=== PATIENT | male | born 1940 | race Caucasian/White ===

== ENCOUNTER 2018-05-27 10:07 | Emergency (ER) | payer OTHER ==
[2018-05-27 11:38] LABS: Urine Amorphous Sediment 1+ /HPF (NONE SEEN); Urine Bacteria <20 /HPF (NONE SEEN); Urine Culture Reflex Order NOT NEEDED; Urine RBC <5 /HPF (NONE SEEN)
[2018-05-27 12:26] LABS: Absolute Lymphocytes (CBC) 2.5 K/uL (0.7-4.9); Absolute Monocytes 0.6 K/uL (0.1-1.3); Absolute Neutrophil 3.9 K/uL (1.8-8.0); Basophils % 1.1 % (0-1.3); Eosinophils % 4.5 % (0-4.4); Hematocrit 38.3 % (39.6-49.0); Lymphocytes % 33.3 % (15.3-44.8); MPV 9.3 fL (7.6-11.3); Monocytes % 8.3 % (3.3-12.3); RBC Red Blood Cell Count 4.38 M/uL (4.33-5.43)
[2018-05-27 12:29] LABS: Potassium 4.5 mmol/L (3.5-5.1)
--- NOTE | 2018-05-27 13:20 | ER ---
Nurse's Notes [facility] Name: Josh Washington Age: 78 yrs Sex: Male : 1940 Arrival Date: 05/27/2018 Time: 10:11 Bed 7 Private MD: Diagnosis: Retention of urine Presentation: 05/27 10:12 Presenting complaint: Patient states: urinary frequency, burning with urination started sv yesterday. Transition of care: patient was not received from another setting of care. Onset of symptoms was May 26, 2018. Care prior to arrival: None. 10:12 Method Of Arrival: Ambulatory sv 10:12 Acuity: BILL 4 sv 11:57 Risk Assessment: Do you want to hurt yourself or someone else? Patient reports no tw2 desire to harm self or others. Initial Sepsis Screen: Does the patient meet any 2 criteria? No. Patient's initial sepsis screen is negative. Does the patient have a suspected source of infection? No. Patient's initial sepsis screen is negative. Triage Assessment: 10:12 General: Appears in no apparent distress. comfortable, Behavior is calm, cooperative, sv appropriate for age. Pain:. Neuro: Level of Consciousness is awake, alert, obeys commands, Oriented to person, place, time, situation, Moves all extremities. Full function Gait is steady. : Reports burning with urination, urinary frequency. Historical: - Allergies: 10:14 No Known Allergies; sv - Immunization history:: Flu vaccine is not up to date. - Social history:: Smoking status: Patient/guardian denies using tobacco. - Ebola Screening: : No symptoms or risks identified at this time. Screenin:53 Abuse screen: Denies threats or abuse. Nutritional screening: No deficits noted. tw2 Tuberculosis screening: No symptoms or risk factors identified. Fall Risk None identified. Assessment: 10:45 General: Appears in no apparent distress. Behavior is calm, cooperative, appropriate tw2 for age. Neuro: Level of Consciousness is awake, alert, obeys commands, Oriented to person, place, time, situation. Cardiovascular: Heart tones S1 S2 Patient's skin is warm and dry. Respiratory: Airway is patent Respiratory effort is even, unlabored, Respiratory pattern is regular, symmetrical, Breath sounds are clear bilaterally. GI: Abdomen is flat, Bowel sounds present X 4 quads. : Reports burning with urination, since last night urinary frequency. EENT: No signs and/or symptoms were reported regarding the EENT system. Derm: No signs and/or symptoms reported regarding the dermatologic system. Musculoskeletal: Range of motion: intact in all extremities. 11:51 Reassessment: pt refused hanna per ALYSA Loaiza at this time. tw2 11:55 Reassessment: Patient appears in no apparent distress at this time. No changes from tw2 previously documented assessment. Patient and/or family updated on plan of care and expected duration. Pain level reassessed. Patient is alert, oriented x 3, equal unlabored respirations, skin warm/dry/pink. 13:18 Reassessment: pt states "I want to go home, i will just call back for the results", tw2 provider aware, pt educated as to against medical advise, pt aware. Vital Signs: 10:14 BP 109 / 72; Pulse 76; Resp 16; Temp 97.7; Pulse Ox 99% ; Weight 65.77 kg; Height 6 ft. sv 0 in. (182.88 cm); Pain 4/10; 11:57 BP 119 / 76; Pulse 84; Resp 17; Pulse Ox 97% on R/A; tw2 13:12 BP 111 / 69; Pulse 71; Resp 17; Pulse Ox 98% on R/A; tw2 10:14 Body Mass Index 19.67 (65.77 kg, 182.88 cm) sv ED Course: 10:11 Patient arrived in ED. mr 10:13 Triage completed. sv 10:15 Arm band placed on Patient placed in waiting room, Patient notified of wait time. sv 10:44 B[facility]C [facility] kb 10:44 Drew Maynard MD is Attending Physician. kb 10:52 Mary Alice Garcia, RN is Primary Nurse. tw2 10:53 Bed in low position. Call light in reach. Pulse ox on. NIBP on. tw2 11:00 Urine collected: clean catch specimen, clear. ag 11:56 Inserted saline lock: 20 gauge in right antecubital area, using aseptic technique. ag Blood collected. 12:59 Stone Protocol In Process Unspecified. EDMS 12:59 CT completed. Patient tolerated procedure well. Patient moved back from CT. bq 13:23 Primary Nurse role handed off by Mary Alice Garcia RN kb Administered Medications: No medications were administered Outcome: 13:19 AMA AMA form signed tw2 13:20 Patient left the ED. tw2 13:24 Patient left the ED. bety Signatures: Dispatcher [employer] EDMS Bárbara Macias, TURF GROWER-C TURF GROWER-CkMichelle Medina RN Cecy Figueroa mr Ashley, Rosa Lewis Tara, RN RN tw2
--- NOTE | 2018-05-27 13:20 | EDPHYS ---
Physician Documentation [facility] Name: Josh Washington Age: 78 yrs Sex: Male : 1940 Arrival Date: 05/27/2018 Time: 10:11 Bed 7 Private MD: ED Physician Drew Maynard HPI: 05/27 13:26 This 78 yrs old Male presents to ER via Ambulatory with complaints of Urinary kb Problem. 13:26 The patient presents with urinary symptoms, dysuria, urinary frequency. Onset: The kb symptoms/episode began/occurred 2 day(s) ago. Modifying factors: The symptoms are alleviated by nothing, the symptoms are aggravated by nothing. Associated signs and symptoms: Pertinent positives: dysuria, Pertinent negatives: abdominal pain, constipation, diarrhea, fever, hematuria, nausea, vomiting. Severity of symptoms: At their worst the symptoms were mild, moderate, in the emergency department the symptoms are unchanged. The patient has not experienced similar symptoms in the past. The patient has not recently seen a physician. Pt reports urinary frequency, small amount and slight burning with urination for 2 days. . Historical: - Allergies: 10:14 No Known Allergies; sv - Immunization history:: Flu vaccine is not up to date. - Social history:: Smoking status: Patient/guardian denies using tobacco. - Ebola Screening: : No symptoms or risks identified at this time. ROS: 13:24 Constitutional: Negative for fever, chills, and weight loss, Cardiovascular: Negative kb for chest pain, palpitations, and edema, Respiratory: Negative for shortness of breath, cough, wheezing, and pleuritic chest pain, Abdomen/GI: Negative for abdominal pain, nausea, vomiting, diarrhea, and constipation, Back: Negative for injury and pain, MS/Extremity: Negative for injury and deformity, Skin: Negative for injury, rash, and discoloration, Neuro: Negative for headache, weakness, numbness, tingling, and seizure. 13:24 : Positive for urinary symptoms, urinary frequency, small amounts, burning with urination. Exam: 13:25 Constitutional: This is a well developed, well nourished patient who is awake, alert, kb and in no acute distress. Head/Face: Normocephalic, atraumatic. ENT: Nares patent. No nasal discharge, no septal abnormalities noted. Tympanic membranes are normal and external auditory canals are clear. Oropharynx with no redness, swelling, or masses, exudates, or evidence of obstruction, uvula midline. Mucous membranes moist. Neck: Trachea midline, no thyromegaly or masses palpated, and no cervical lymphadenopathy. Supple, full range of motion without nuchal rigidity, or vertebral point tenderness. No Meningismus. Chest/axilla: Normal chest wall appearance and motion. Nontender with no deformity. No lesions are appreciated. Cardiovascular: Regular rate and rhythm with a normal S1 and S2. No gallops, murmurs, or rubs. Normal PMI, no JVD. No pulse deficits. Respiratory: Lungs have equal breath sounds bilaterally, clear to auscultation and percussion. No rales, rhonchi or wheezes noted. No increased work of breathing, no retractions or nasal flaring. Abdomen/GI: Soft, non-tender, with normal bowel sounds. No distension or tympany. No guarding or rebound. No evidence of tenderness throughout. Skin: Warm, dry with normal turgor. Normal color with no rashes, no lesions, and no evidence of cellulitis. MS/ Extremity: Pulses equal, no cyanosis. Neurovascular intact. Full, normal range of motion. Neuro: Awake and alert, GCS 15, oriented to person, place, time, and situation. Cranial nerves II-XII grossly intact. Motor strength 5/5 in all extremities. Sensory grossly intact. Cerebellar exam normal. Normal gait. Vital Signs: 10:14 BP 109 / 72; Pulse 76; Resp 16; Temp 97.7; Pulse Ox 99% ; Weight 65.77 kg; Height 6 ft. sv 0 in. (182.88 cm); Pain 4/10; 11:57 BP 119 / 76; Pulse 84; Resp 17; Pulse Ox 97% on R/A; tw2 13:12 BP 111 / 69; Pulse 71; Resp 17; Pulse Ox 98% on R/A; tw2 10:14 Body Mass Index 19.67 (65.77 kg, 182.88 cm) sv MDM: 10:44 Patient medically screened. kb 11:49 Data reviewed: vital signs, nurses notes. Data interpreted: Pulse oximetry: on room air kb is 99 %. Interpretation: normal. ED course: Pt educated on bladder scanner results and need for labs, CT and hanna catheter. Pt agrees to have blood work and CT done, but refuses foely catheter insertion. Educated that the hanna will help his symptoms, but pt does not want a hanna placed. 11:50 Refusal of service: The patient/guardian displays adequate decision making capability kb and despite a detailed discussion of alternatives, benefits, risks, and consequences refuses: hanna catheter. 13:20 Counseling: I had a detailed discussion with the patient and/or guardian regarding: lab kb results. 05/27 11:04 Order name: Urine Dipstick--Ancillary (enter results); Complete Time: 16:58 eb 05/27 11:12 Order name: Urine Microscopic Only; Complete Time: 11:40 EDMS 05/27 12:09 Order name: Basic Metabolic Panel; Complete Time: 12:34 EDNM 05/27 10:44 Order name: Urine Dipstick-Ancillary (obtain specimen); Complete Time: 11:00 kb 05/27 11:22 Order name: Bladder Scanner: PVR; Complete Time: 11:56 kb 05/27 11:58 Order name: IV Start; Complete Time: 11:58 tw 05/27 12:09 Order name: CBC with Automated Diff; Complete Time: 12:34 EDMS 05/27 12:30 Order name: Stone Protocol; Complete Time: 16:58 EDMS Administered Medications: No medications were administered Disposition: 17:27 Co-signature as Attending Physician, Drew Maynard MD. ma2 Disposition: 05/27/18 13:20 Patient has left against medical advice. Impression: Retention of urine. - Patients states they are going to Home. - Condition is Stable. Follow up: Emergency Department; When: As needed; Reason: Worsening of condition. Follow up: Private Physician; When: 2 - 3 days; Reason: Recheck today's complaints, Continuance of care, Re-evaluation by your physician. - Problem is new. - Symptoms are unchanged. Signatures: Dispatcher [facility] Bárbara Macias FNP-C FNP-Ckb Verde, Stephanie, RN Mary Alice Domingo RN RN 2 Drew Maynard MD MD id2 Corrections: (The following items were deleted from the chart) 12:30 12:13 Abdomen ordered. [facility] 13:24 13:20 05/27/2018 13:20 Patients has left against medical advice. Patient states they kb are going to Home. Condition is Stable. tw2 13:24 13:24 05/27/2018 13:20 Patients has left against medical advice. Impression: Retention kb of urine. Patient states they are going to Home. Condition is Stable. Follow up: Emergency Department; When: As needed; Reason: Worsening of condition. Follow up: Private Physician; When: 2 - 3 days; Reason: Recheck today's complaints, Continuance of care, Re-evaluation by your physician. Problem is new. Symptoms are unchanged. kb
--- NOTE | 2018-05-27 13:36 | RAD REPORT ---
EXAM DESCRIPTION: CT - Stone Protocol - 05/27/2018 12:58 pm CLINICAL HISTORY: Abdominal pain, flank pain COMPARISON: None. TECHNIQUE: Axial 5 mm thick images were obtained without oral or IV contrast. The [id number] span s the entirety of the system partially obscuring uppermost abdomen and lung bases. All CT scans are performed using dose optimization technique as appropriate and may include automated exposure control or mA/KV adjustment according to patient size. FINDINGS: No hydronephrosis is present and no obstructing ureteral calculi. Patient has 5 mm left up per pole and 3 mm left lower pole caliceal calculi. No suspicious renal masses. Isodense masses and p yelonephritis are not excluded on a stone protocol CT scan. Urinary bladder is dilated extending abov e the umbilical level. No bladder wall thickening or mass identified. No bladder calculi. Prostate gl and is prominent. No invasion of adjacent structures identified. Patient may have prostatic urethral outflow obstruction. No significant adrenal finding. Imaged portions of the liver, spleen and pancreas show no suspicious findings on non-contrast imaging . No gallbladder or biliary tree abnormality identified. Granulomatous calcifications are present in the liver. No suspicious bowel findings. Sigmoid diverticulosis present without diverticulitis. No appendicitis findings. No hernia, mass or bulky lymphadenopathy noted. No free air, free fluid or inflammatory stranding. Disc and bony degenerative changes are present. Partial compression fractures involve T10-T12. No acu te fracture line seen. These are suspected to be chronic. Chronic interstitial lung disease at each lung base. IMPRESSION: No hydronephrosis or obstructing calculi. Patient has nonobstructing calculi on the left . Dilated urinary bladder extending above the level of the umbilicus. No bladder mass or wall thickenin g. Patient may have prostatic urethral outflow obstruction. Isodense masses and pyelonephritis are not excluded on stone protocol technique. Partial compression T10-T12 suspected to be chronic.
[2018-05-27 16:04] LABS: Urine Blood TRACE (NEG); Urine Glucose NEGATIVE (NEG); Urine Protein NEGATIVE (NEG)
== END 2018-05-27 13:24 | disposition left against medical advice (07) ==
LOC: ER 10:07
DX: R33.9 Retention of urine, unspecified (principal)
CPT/HCPCS: 36415; 74176; 76377; 80048; 81003; 81015; 85025; 99284

== ENCOUNTER 2018-06-07 03:38 | Emergency (ER) | payer OTHER ==
[2018-06-07 04:29] LABS: Protime INR 1.03
[2018-06-07 04:31] LABS: Absolute Monocytes 0.5 K/uL (0.1-1.3)
[2018-06-07 04:34] LABS: Absolute Lymphocytes (CBC) 3.4 K/uL (0.7-4.9); Absolute Neutrophil 1.6 K/uL (1.8-8.0); Basophils % 0.8 % (0-1.3); Eosinophils % 1.6 % (0-4.4); Hematocrit 36.9 % (39.6-49.0); Lymphocytes % 60.5 % (15.3-44.8); MPV 8.8 fL (7.6-11.3); RBC Red Blood Cell Count 4.26 M/uL (4.33-5.43)
[2018-06-07 04:45] LABS: ALT/SGPT 11 U/L (12-78); AST/SGOT 13 U/L (15-37); Albumin 3.3 g/dL (3.4-5.0); Alkaline Phosphatase 84 U/L (45-117); BUN Blood Urea Nitrogen 15 mg/dL (7-18); Bicarbonate 24 mmol/L (21-32); Bilirubin Direct 0.2 mg/dL (0-0.2); Bilirubin Total 0.5 mg/dL (0.2-1.0); Glucose Level 94 mg/dL (74-106); Lipase 120 U/L (73-393); Magnesium 2.1 mg/dL (1.8-2.4); NT PRO-BNP 825 pg/mL (<450); Potassium 3.5 mmol/L (3.5-5.1); Protein, Total 7.1 g/dL (6.4-8.2); Sodium Level 140 mmol/L (136-145); Troponin (Emerg Dept Use Only) 0.02 ng/mL (0.0-0.045)
--- NOTE | 2018-06-07 04:57 | ER ---
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 Pt states he ran out of hydrocodone. Transition of care: [facility]. Onset of symptoms is unknown. Risk Assessment: Do you want to hurt yourself or someone else? Patient reports no desire to harm self or others. Initial Sepsis Screen: Does the patient meet any 2 criteria? No. Patient's initial sepsis screen is negative. Does the patient have a suspected source of infection? No. Patient's initial sepsis screen is negative. Care prior to arrival: None. 03:50 Method Of Arrival: EMS: [place] [facility] tl1 03:50 Acuity: BILL 3 tl1 Historical: - Allergies: 03:57 No Known Allergies; tl1 - Home Meds: 03:57 Flomax 0.4 mg Oral cp24 [Active]; tl1 - PMHx: 03:57 BPH; tl1 - Immunization history:: Adult Immunizations unknown. - Social history:: Smoking status: Patient/guardian denies using tobacco, Patient uses street drugs, marijuana. - Ebola Screening: : Patient negative for fever greater than or equal to 101.5 degrees Fahrenheit, and additional compatible Ebola Virus Disease symptoms Patient denies exposure to infectious person Patient denies travel to an Ebola-affected area in the 21 days before illness onset. - Family history:: not pertinent. Screenin:31 Abuse screen: Denies threats or abuse. Denies injuries from another. Nutritional tl1 screening: No deficits noted. Tuberculosis screening: No symptoms or risk factors identified. Fall Risk IV access (20 points). Assessment: 04:32 General: Appears in no apparent distress. Behavior is cooperative, appropriate for age, tl1 agitated. General: Appears unkempt. Pain: Complains of pain in pelvis and left leg and left hip and chest and left breast and left lateral posterior chest and left lateral anterior chest. Neuro: Level of Consciousness is awake, alert, obeys commands. Cardiovascular: Denies chest pain. Respiratory: Airway is patent Trachea midline Respiratory effort is even, unlabored, Breath sounds are clear bilaterally. tenderness noted with palpation to left medial rib cage area. Respiratory: Reports cough that is productive. GI: Abdomen is non-distended, Bowel sounds present X 4 quads. Abd is soft and non tender X 4 quads. : No signs and/or symptoms were reported regarding the genitourinary system. 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 Vital Signs: 03:52 BP 123 / 102; Pulse 73; Resp 18; Temp 97.5; Pulse Ox 96% on R/A; Weight 65.77 kg; tl1 Height 6 ft. 0 in. (182.88 cm); Pain 10/10; 04:31 BP 134 / 65; Pulse 71; Resp 16; Pulse Ox 97% on R/A; tl1 05:02 BP 124 / 75; Pulse 77; Resp 16; Temp 97.5; Pulse Ox 97% on R/A; Pain 5/10; tl1 03:52 Body Mass Index 19.67 (65.77 kg, 182.88 cm) tl1 ED Course: 03:49 Patient arrived in ED. tl1 03:50 Amy Manning, WILBERT is Primary Nurse. tl1 03:51 Eligio Porter MD is Attending Physician. daina 03:52 Triage completed. tl1 03:58 Arm band placed on right wrist. tl1 04:00 Patient has correct armband on for positive identification. Bed in low position. Call tl1 light in reach. Side rails up X2. Adult w/ patient. in custody with [place] [employer] during ER visit. shelter monitor on. Pulse ox on. NIBP on. 04:29 XRAY Chest (1 view) In Process Unspecified. EDMS 04:29 Hip Left 2 View XRAY In Process Unspecified. EDMS 04:55 Gary Ramirez MD is Referral Physician. daina 05:02 No provider procedures requiring assistance completed. Patient did not have IV access tl1 during this emergency room visit. patient refused. Administered Medications: 05:04 Not Given (Patient Refused): NS 0.9% 1000 ml IV at 1 bolus Per protocol; 1000 mL bolus tl1 05:04 Drug: Tylenol 1000 mg Route: PO; tl1 05:05 Follow up: Response: No adverse reaction; Medication administered at discharge. tl1 Outcome: 05:05 AMA AMA form signed tl1 05:05 Discharged to Law Enforcement 05:05 Condition: stable 05:05 Instructed on discharge instructions, follow up and referral plans. 05:08 Patient left the ED. tl1 Signatures: Dispatcher [employer] Eligio Myrick MD MD cha Lasagna, Tonya, RN RN tl1
--- NOTE | 2018-06-07 04:57 | EDPHYS ---
Physician Documentation [facility] Name: Josh Washington Age: 78 yrs Sex: Male : 1940 Arrival Date: 06/07/2018 Time: 03:49 Bed 8 Private MD: ED Physician Eligio Porter HPI: 06/07 04:00 This 78 yrs old Male presents to ER via EMS with complaints of Hip Pain. daina 04:00 The patient or guardian reports decreased range of motion, pain. sustained from a fall, daina There is no obvious deformity. 04:01 The complaints affect the left lateral anterior chest, left lateral posterior chest and daina left breast. Onset: The symptoms/episode began/occurred 3 day(s) ago. Modifying factors: The symptoms are alleviated by remaining still, the symptoms are aggravated by any movement. Associated signs and symptoms: Loss of consciousness: the patient experienced no loss of consciousness. The patient or guardian reports chest pain that is located primarily in the anterior chest wall, left lateral anterior chest, left lateral posterior chest and left breast. The pain does not radiate. Historical: - Allergies: 03:57 No Known Allergies; tl1 - Home Meds: 03:57 Flomax 0.4 mg Oral cp24 [Active]; tl1 - PMHx: 03:57 BPH; tl1 - Immunization history:: Adult Immunizations unknown. - Social history:: Smoking status: Patient/guardian denies using tobacco, Patient uses street drugs, marijuana. - Ebola Screening: : Patient negative for fever greater than or equal to 101.5 degrees Fahrenheit, and additional compatible Ebola Virus Disease symptoms Patient denies exposure to infectious person Patient denies travel to an Ebola-affected area in the 21 days before illness onset. - Family history:: not pertinent. ROS: 04:01 Constitutional: Negative for fever, chills, and weight loss, Eyes: Negative for injury, daina pain, redness, and discharge, ENT: Negative for injury, pain, and discharge, Neck: Negative for injury, pain, and swelling, Cardiovascular: Negative for chest pain, palpitations, and edema, Abdomen/GI: Negative for abdominal pain, nausea, vomiting, diarrhea, and constipation, Back: Negative for injury and pain, : Negative for injury, bleeding, discharge, and swelling, Skin: Negative for injury, rash, and discoloration, Neuro: Negative for headache, weakness, numbness, tingling, and seizure, Psych: Negative for depression, anxiety, suicide ideation, homicidal ideation, and hallucinations, Allergy/Immunology: Negative for hives, rash, and allergies, Endocrine: Negative for neck swelling, polydipsia, polyuria, polyphagia, and marked weight changes, Hematologic/Lymphatic: Negative for swollen nodes, abnormal bleeding, and unusual bruising. 04:01 Respiratory: Positive for pleurisy, of the left lateral posterior chest. 04:01 MS/extremity: Positive for decreased range of motion, pain, tenderness, of the left hip. Exam: 04:01 Constitutional: This is a well developed, well nourished patient who is awake, alert, daina and in no acute distress. Head/Face: Normocephalic, atraumatic. Eyes: Pupils equal round and reactive to light, extra-ocular motions intact. Lids and lashes normal. Conjunctiva and sclera are non-icteric and not injected. Cornea within normal limits. Periorbital areas with no swelling, redness, or edema. ENT: Nares patent. No nasal discharge, no septal abnormalities noted. Tympanic membranes are normal and external auditory canals are clear. Oropharynx with no redness, swelling, or masses, exudates, or evidence of obstruction, uvula midline. Mucous membranes moist. Neck: Trachea midline, no thyromegaly or masses palpated, and no cervical lymphadenopathy. Supple, full range of motion without nuchal rigidity, or vertebral point tenderness. No Meningismus. Cardiovascular: Regular rate and rhythm with a normal S1 and S2. No gallops, murmurs, or rubs. Normal PMI, no JVD. No pulse deficits. Respiratory: Lungs have equal breath sounds bilaterally, clear to auscultation and percussion. No rales, rhonchi or wheezes noted. No increased work of breathing, no retractions or nasal flaring. Abdomen/GI: Soft, non-tender, with normal bowel sounds. No distension or tympany. No guarding or rebound. No evidence of tenderness throughout. Back: No spinal tenderness. No costovertebral tenderness. Full range of motion. Male : Normal genitalia with no discharge or lesions. Skin: Warm, dry with normal turgor. Normal color with no rashes, no lesions, and no evidence of cellulitis. Neuro: Awake and alert, GCS 15, oriented to person, place, time, and situation. Cranial nerves II-XII grossly intact. Motor strength 5/5 in all extremities. Sensory grossly intact. Cerebellar exam normal. Normal gait. Psych: Awake, alert, with orientation to person, place and time. Behavior, mood, and affect are within normal limits. 04:01 Chest/axilla: Inspection: normal, no acute changes, Palpation: tenderness, that is moderate, of the left lateral anterior chest and left lateral posterior chest. 04:01 Musculoskeletal/extremity: Extremities: noted in the left hip: decreased ROM, pain. Vital Signs: 03:52 BP 123 / 102; Pulse 73; Resp 18; Temp 97.5; Pulse Ox 96% on R/A; Weight 65.77 kg; tl1 Height 6 ft. 0 in. (182.88 cm); Pain 10/10; 04:31 BP 134 / 65; Pulse 71; Resp 16; Pulse Ox 97% on R/A; tl1 05:02 BP 124 / 75; Pulse 77; Resp 16; Temp 97.5; Pulse Ox 97% on R/A; Pain 5/10; tl1 03:52 Body Mass Index 19.67 (65.77 kg, 182.88 cm) tl1 MDM: 03:51 Patient medically screened. [facility] 04:04 Data reviewed: vital signs, nurses notes, lab test result(s), EKG, radiologic studies, [facility] CT scan, plain films. 06/07 04:00 Order name: Basic Metabolic Panel; Complete Time: 04:53 [facility] 06/07 04:00 Order name: CBC with Diff [facility] 06/07 04:00 Order name: LFT's; Complete Time: 04:53 [facility] 06/07 04:00 Order name: Magnesium; Complete Time: 04:53 [facility] 06/07 04:00 Order name: NT PRO-BNP; Complete Time: 04:53 [facility] 06/07 04:00 Order name: PT-INR; Complete Time: 04:53 [facility] 06/07 04:00 Order name: Troponin (emerg Dept Use Only); Complete Time: 04:53 [facility] 06/07 04:00 Order name: XRAY Chest (1 view) [facility] 06/07 04:00 Order name: Hip Left 2 View XRAY [facility] 06/07 04:00 Order name: Lipase; Complete Time: 04:53 [facility] 06/07 04:00 Order name: EKG; Complete Time: 04:01 [facility] 06/07 04:00 Order name: Cardiac monitoring; Complete Time: 04:14 [facility] 06/07 04:00 Order name: EKG - Nurse/Tech; Complete Time: 04:35 [facility] 06/07 04:00 Order name: IV Saline Lock; Complete Time: 04:14 [facility] 06/07 04:00 Order name: Labs collected and sent; Complete Time: 04:14 [facility] 06/07 04:00 Order name: O2 Per Protocol; Complete Time: 04:14 [facility] 06/07 04:00 Order name: O2 Sat Monitoring; Complete Time: 04:14 [facility] Administered Medications: 05:04 Not Given (Patient Refused): NS 0.9% 1000 ml IV at 1 bolus Per protocol; 1000 mL bolus tl1 05:04 Drug: Tylenol 1000 mg Route: PO; tl1 05:05 Follow up: Response: No adverse reaction; Medication administered at discharge. tl1 Disposition: 06/07/18 04:56 Patient has left against medical advice. Impression: Fall due to bumping against object, Pain in left hip, Contusion of left back wall of thorax, Contusion of left front wall of thorax, Anemia, unspecified. - Patients states they are going to Home. - Condition is Stable. - Discharge Instructions: Anemia, Nonspecific, Joint Pain, Musculoskeletal Pain, Fall Prevention in the Home, [id number], Hip Pain, Arthritis, [id number], Joint Pain, [id number]. Follow up: Private Physician; When: 2 - 3 days; Reason: Recheck today's complaints, Continuance of care, Re-evaluation by your physician. Follow up: Gary Ramirez MD; When: 1 - 2 days; Reason: Recheck today's complaints, Re-evaluation by your physician. - Problem is new. - Symptoms have improved. Signatures: Dispatcher [employer] Eligio Myrick MD MD cha Lasagna, Tonya, RN RN tl1 Corrections: (The following items were deleted from the chart) 04:29 04:01 Pelvis+RAD.RAD.BRZ ordered. [facility] 05:08 04:00 Urine Dipstick-Ancillary ordered. [facility] tl1 05:08 04:56 06/07/2018 04:56 Patients has left against medical advice. Impression: Fall due tl1 to bumping against object; Pain in left hip; Contusion of left back wall of thorax; Contusion of left front wall of thorax; Anemia, unspecified. Patient states they are going to Home. Condition is Stable. Follow up: Private Physician; When: 2 - 3 days; Reason: Recheck today's complaints, Continuance of care, Re-evaluation by your physician. Follow up: Dr. Gary Ramirez; When: 1 - 2 days; Reason: Recheck today's complaints, Re-evaluation by your physician. Problem is new. Symptoms have improved. daina
[2018-06-07] MEDS ORDERED: ACETAMINOPHEN 500 MG TAB ONE (05:08)
[2018-06-07 05:09] LABS: Blood Morphology Comment NOT SEEN (NOT SEEN); Platelet Estimate ADEQ; Urine White Blood Cell Casts OK
--- NOTE | 2018-06-07 06:14 | RAD REPORT ---
EXAM DESCRIPTION: RAD - Chest Single View - 06/07/2018 4:31 am CLINICAL HISTORY: Persistent left-sided chest pain, history of fall 2 weeks earlier COMPARISON: None. TECHNIQUE: AP portable chest image was obtained 0426 hours . FINDINGS: Vague opacification lateral mid right lung field is probably scarring and summation artifa ct. Follow-up two-view chest imaging may be helpful. No infiltrate, pulmonary contusion or acute lung parenchymal process on the left. Heart and vasculature are normal. No measurable pleural effusion an d no pneumothorax. No acute bony abnormality seen. Focal rib pain could be addressed with dedicated r ib films. No acute aortic finding. IMPRESSION: No pneumothorax, pulmonary contusion or other trauma related findings to the left chest. Vague opacification lateral mid right lung field is probably scarring and/ or summation. Follow-up tw o-view chest imaging may be helpful.
--- NOTE | 2018-06-07 06:43 | RAD REPORT ---
EXAM DESCRIPTION: RAD - Hip Left 2 View - 06/07/2018 4:30 am CLINICAL HISTORY: Persistent hip pain following fall COMPARISON: None. FINDINGS: AP and frogleg views of the left hip were obtained. There is no fracture or dislocation. N o AVN or focal femoral head abnormality. Mild for age hip joint degenerative changes are present. No joint effusion suspected. No soft tissue abnormality. IMPRESSION: Negative left hip examination for acute or significant findings.
--- NOTE | 2018-06-07 07:12 | EKG ---
Test Date: 2018-06-07 Test Time: 04:25:10 Siderographist: TL MEASUREMENT RESULTS: Intervals: Rate: 69 PA: 172 QRSD: 182 QT: 514 QTc: 550 [place]: P: 82 PA: 172 QRS: -10 T: 120 INTERPRETIVE STATEMENTS: Normal sinus rhythm Left bundle branch block Abnormal ECG No previous ECG available for comparison Electronically Signed On 06-07-18 07:12:04 PROCESS VALIDATION ENGINEER by Wesley Agustin
== END 2018-06-07 05:08 | disposition left against medical advice (07) ==
LOC: ER 03:38
DX: S20.222A Contusion of left back wall of thorax, initial encounter (principal); S20.212A Contusion of left front wall of thorax, initial encounter; D64.9 Anemia, unspecified; W18.00XA Striking against unspecified object with subsequent fall, initial encounter; Y93.9 Activity, unspecified; Y92.9 Unspecified place or not applicable
CPT/HCPCS: 36415; 71045; 80048; 80076; 83690; 83735; 83880; 84484; 85025; 85610; 93005; 99284

== ENCOUNTER 2020-01-13 15:23 | Emergency (ER) | payer OTHER ==
[2020-01-13] MEDS ORDERED: HYDROCODONE/APAP 10/325 TAB ONE (16:12)
--- NOTE | 2020-01-13 16:42 | RAD REPORT ---
EXAM DESCRIPTION: CTSpine Lumbar Wo Con01/13/2020 4:28 pm CLINICAL HISTORY: Back injury with back pain status post fall TECHNIQUE: Computed axial tomography lumbar spine was obtained with coronal and sagittal reconstruct ion. All CT scans are performed using dose optimization technique as appropriate and may include automated exposure control or mA/KV adjustment according to patient size. FINDINGS: No fracture is seen. No dislocation is noted. Mild spondylosis Bones are osteoporotic. No high-grade stenosis noted. Small sclerotic density within that the L4 vertebra are unchanged from 2018 Nonobstructing left renal calculi IMPRESSION: Negative for a lumbar fracture. If patient continues have symptoms to suggest spinal canal pathology MRI would be recommended
--- NOTE | 2020-01-13 16:55 | RAD REPORT ---
EXAM DESCRIPTION: CT - Thorax Wo Con - 01/13/2020 4:29 pm CLINICAL HISTORY: Chest pain status post fall COMPARISON: None TECHNIQUE: Computed axial tomography of the chest was obtained. Contrast was not requested. All CT scans are performed using dose optimization technique as appropriate and may include automated exposure control or mA/KV adjustment according to patient size. FINDINGS: The evaluation of mediastinum, mila and vessels is limited secondary to lack of IV contras t administration. A mediastinal hematoma is not seen. A pulmonary contusion is not noted. Mild chronic appearing lung opacities A small right pleural effusion or thickening. A pericardial effusion is not seen Gallstones without gallbladder wall thickening. Nonobstructing renal calculi. Hepatic granulomata IMPRESSION: No acute traumatic injury involving the chest seen
--- NOTE | 2020-01-13 16:55 | RAD REPORT ---
EXAM DESCRIPTION: CTThoracic Spine W/o Cont01/13/2020 4:29 pm CLINICAL HISTORY: Back injury with Back pain status post fall COMPARISON: None TECHNIQUE: Computed axial tomography of thoracic spine was obtained with coronal and sagittal recons truction. All CT scans are performed using dose optimization technique as appropriate and may include automated exposure control or mA/KV adjustment according to patient size. FINDINGS: No acute fracture is seen. No dislocation is noted. Mild compression T11 vertebral body likely chronic No high-grade stenosis. Hemangiomas are present within several thoracic vertebra IMPRESSION: Negative for an acute thoracic fracture If the patient has clinical symptoms to suggest spinal cord/ spinal canal pathology then MRI would be recommended.
--- NOTE | 2020-01-13 17:19 | ER ---
Nurse's Notes [facility] Name: Josh Washington Age: 79 yrs Sex: Male : 1940 Arrival Date: 01/13/2020 Time: 15:23 Bed 8 Private MD: Diagnosis: Low back pain Presentation: 01/12 15:35 Chief complaint: Patient states: mid/low back pain that radiates to the right ribcage sv area. Reports falling in the bathtub a week ago. Coronavirus screen: Client denies travel out of the [place] in the last 14 days. At this time, the client does not indicate any symptoms associated with coronavirus-19. Ebola Screen: No symptoms or risks identified at this time. Risk Assessment: Do you want to hurt yourself or someone else? Patient reports no desire to harm self or others. Onset of symptoms was January 06, 2020. 15:35 Method Of Arrival: Ambulatory sv 15:35 Acuity: BILL 3 sv 15:37 Initial Sepsis Screen: Does the patient meet any 2 criteria? No. Patient's initial sv sepsis screen is negative. Does the patient have a suspected source of infection? No. Patient's initial sepsis screen is negative. Historical: - Allergies: 15:37 No Known Allergies; sv - PMHx: 15:37 BPH; sv - Immunization history:: Adult Immunizations unknown. - Social history:: Patient/guardian denies using alcohol, street drugs, The patient lives with family, Smoking status: unknown. Screenin:41 Abuse screen: Denies threats or abuse. Denies injuries from another. Nutritional ph screening: No deficits noted. Tuberculosis screening: No symptoms or risk factors identified. Fall Risk None identified. Assessment: 16:18 General: Appears in no apparent distress. comfortable, Behavior is calm, cooperative, ph appropriate for age. Pain: Complains of pain in lumbar area and thoracic area Pain radiates to right mid back and right subscapular area. Neuro: Level of Consciousness is awake, alert, obeys commands, Oriented to person, place, time, situation. Cardiovascular: Capillary refill < 3 seconds in bilateral Patient's skin is warm and dry. Respiratory: Airway is patent Respiratory effort is even, unlabored, Respiratory pattern is regular, symmetrical. GI: No signs and/or symptoms were reported involving the gastrointestinal system. Derm: Skin is intact, is healthy with good turgor, Skin is pink, warm \T\ dry. Musculoskeletal: Circulation, motion, and sensation intact. Range of motion: intact in all extremities. 17:29 Reassessment: Patient appears in no apparent distress at this time. No changes from tw2 previously documented assessment. Patient and/or family updated on plan of care and expected duration. Pain level reassessed. Patient is alert, oriented x 3, equal unlabored respirations, skin warm/dry/pink. Vital Signs: 15:37 BP 107 / 74; Pulse 68; Resp 16; Temp 98.7; Pulse Ox 96% ; Weight 70.31 kg; Height 6 ft. sv 0 in. (182.88 cm); 16:40 BP 95 / 68; Pulse 72; Resp 17; Pulse Ox 95% on R/A; tw2 17:28 BP 113 / 85; Pulse 60; Resp 17; Pulse Ox 95% on R/A; tw2 15:37 Body Mass Index 21.02 (70.31 kg, 182.88 cm) sv ED Course: 15:23 Patient arrived in ED. ds1 15:36 Triage completed. sv 15:37 Arm band placed on. sv 15:40 Drew Maynard MD is Attending Physician. ma2 15:40 Tabatha Villa, RN is Primary Nurse. ph 15:42 Patient has correct armband on for positive identification. Bed in low position. Call ph light in reach. Side rails up X 1. Pulse ox on. NIBP on. Door closed. Noise minimized. 16:28 CT Lumbar Spine Wo Con In Process Unspecified. EDMS 16:29 CT Chest Wo Con In Process Unspecified. EDMS 16:29 CT Thoracic Spine Wo Cont In Process Unspecified. EDMS 16:30 CT completed. Patient tolerated procedure well. Patient moved back from CT. bq 17:29 No provider procedures requiring assistance completed. Patient did not have IV access tw2 during this emergency room visit. Administered Medications: 16:15 Drug: [place] 10 mg-325 mg 1 tabs Route: PO; ph 17:21 Follow up: Response: No adverse reaction ph Outcome: 17:19 Discharge ordered by . ma2 17:29 Discharged to home ambulatory. tw2 17:29 Condition: stable 17:29 Discharge instructions given to patient, Instructed on discharge instructions, follow up and referral plans. no drinking with medication, no driving heavy equipment, medication usage, Demonstrated understanding of instructions, follow-up care, medications, Prescriptions given X 2. 17:29 Patient left the ED. tw2 Signatures: Dispatcher [employer] EDMichelle Roe RN RN Concha Ovalle Demi ds1 Tabatha Villa RN RN Mary Alice Garcia RN RN tw2 Drew Maynard MD MD mi2
--- NOTE | 2020-01-13 17:19 | EDPHYS ---
Physician Documentation [facility] Name: Josh Washington Age: 79 yrs Sex: Male : 1940 Arrival Date: 01/13/2020 Time: 15:23 Bed 8 Private MD: ED Physician Drew Maynard HPI: 01/12 16:08 This 79 yrs old Male presents to ER via Ambulatory with complaints of Back ma2 Pain. 16:08 The patient presents with pain that is acute. The symptoms are located in the right ma2 subscapular area, thoracic area, lumbar area and right mid back. Onset: The symptoms/episode began/occurred suddenly, 3 week(s) ago. Associated signs and symptoms: Pertinent negatives: chest pain, constipation, fever, headache, nausea, weakness. Severity of symptoms: At their worst the symptoms were mild, in the emergency department the symptoms are unchanged. The patient has not experienced similar symptoms in the past. Historical: - Allergies: 15:37 No Known Allergies; sv - PMHx: 15:37 BPH; sv - Immunization history:: Adult Immunizations unknown. - Social history:: Patient/guardian denies using alcohol, street drugs, The patient lives with family, Smoking status: unknown. ROS: 16:08 Constitutional: Negative for fever, chills, and weight loss. ma2 16:08 All other systems are negative. Exam: 16:08 Constitutional: This is a well developed, well nourished patient who is awake, alert, ma2 and in no acute distress. Neck: Trachea midline, no thyromegaly or masses palpated, and no cervical lymphadenopathy. Supple, full range of motion without nuchal rigidity, or vertebral point tenderness. No Meningismus. Chest/axilla: Normal chest wall appearance and motion. Nontender with no deformity. No lesions are appreciated. Cardiovascular: Regular rate and rhythm with a normal S1 and S2. No gallops, murmurs, or rubs. Normal PMI, no JVD. No pulse deficits. Respiratory: Lungs have equal breath sounds bilaterally, clear to auscultation and percussion. No rales, rhonchi or wheezes noted. No increased work of breathing, no retractions or nasal flaring. Abdomen/GI: Soft, non-tender, with normal bowel sounds. No distension or tympany. No guarding or rebound. No evidence of tenderness throughout. Back: para spinal tenderness over E64-T5-0. No costovertebral tenderness. Full range of motion. Skin: Warm, dry with normal turgor. Normal color with no rashes, no lesions, and no evidence of cellulitis. MS/ Extremity: Pulses equal, no cyanosis. Neurovascular intact. Full, normal range of motion. Neuro: Awake and alert, GCS 15, oriented to person, place, time, and situation. Cranial nerves II-XII grossly intact. Motor strength 5/5 in all extremities. Sensory grossly intact. Cerebellar exam normal. Normal gait. Vital Signs: 15:37 BP 107 / 74; Pulse 68; Resp 16; Temp 98.7; Pulse Ox 96% ; Weight 70.31 kg; Height 6 ft. sv 0 in. (182.88 cm); 16:40 BP 95 / 68; Pulse 72; Resp 17; Pulse Ox 95% on R/A; tw2 17:28 BP 113 / 85; Pulse 60; Resp 17; Pulse Ox 95% on R/A; tw2 15:37 Body Mass Index 21.02 (70.31 kg, 182.88 cm) sv MDM: 15:43 Patient medically screened. [facility] 16:08 Differential diagnosis: Fracture Obesity Osteoarthritis Osteoporosis sprain. dc2 17:19 Data reviewed: vital signs, nurses notes. Counseling: I had a detailed discussion with ma the patient and/or guardian regarding: the historical points, exam findings, and any diagnostic results supporting the discharge/admit diagnosis, the presence of at least one elevated blood pressure reading (>120/80) during this emergency department visit, the need for outpatient follow up. Response to treatment: the patient's symptoms have markedly improved after treatment. 01/12 15:49 Order name: CT Lumbar Spine Wo Con; Complete Time: 17: dc2 01/12 15:49 Order name: CT Chest Wo Con; Complete Time: 17: dc2 01/12 15:49 Order name: CT Thoracic Spine Wo Cont; Complete Time: 17:01 ma2 Administered Medications: 16:15 Drug: [place] 10 mg-325 mg 1 tabs Route: PO; ph 17:21 Follow up: Response: No adverse reaction ph Disposition: 01/13/20 17:19 Discharged to Home. Impression: Low back pain. - Condition is Stable. - Discharge Instructions: Back Pain, Adult. - Prescriptions for Cyclobenzaprine 10 mg Oral Tablet - take 1 tablet by ORAL route every 8 hours As needed; 30 tablet. Diclofenac Sodium 75 mg Oral Tablet Sustained Release - take 1 tablet by ORAL route 2 times per day; 30 tablet. - Medication Reconciliation Form, Thank You Letter, Antibiotic Education, Prescription Opioid Use form. - Follow up: Private Physician; When: Tomorrow; Reason: Continuance of care. Signatures: Dispatcher [employer] EDMichelle Roe RN RN Tabatha Villa RN RN [facility] Alice RN RN tw2 Drew Maynard MD MD ma2 Corrections: (The following items were deleted from the chart) 17:29 17:19 01/13/2020 17:19 Discharged to Home. Impression: Low back pain. Condition is tw2 Stable. Discharge Instructions: Back Pain, Adult. Prescriptions for Cyclobenzaprine 10 mg Oral Tablet - take 1 tablet by ORAL route every 8 hours As needed; 30 tablet, Diclofenac Sodium 75 mg Oral Tablet Sustained Release - take 1 tablet by ORAL route 2 times per day; 30 tablet. and Forms are Medication Reconciliation Form, Thank You Letter, Antibiotic Education, Prescription Opioid Use. Follow up: Private Physician; When: Tomorrow; Reason: Continuance of care. ma2
[2020-01-13 17:47] VITALS: TEMP 98.7
[2020-01-13 17:48] VITALS: O2SAT 95
[2020-01-13 17:49] VITALS: BP 113/85
== END 2020-01-13 17:29 | disposition home or self-care (01) ==
LOC: ER 15:23
DX: M54.5 Low back pain (principal); W18.2XXA Fall in (into) shower or empty bathtub, initial encounter; Y93.9 Activity, unspecified; Y92.9 Unspecified place or not applicable
CPT/HCPCS: 71250; 72128; 72131; 99284

== ENCOUNTER 2020-01-14 11:08 | Emergency (ER) | payer OTHER ==
[2020-01-14] MEDS ORDERED: HYDROCODONE/APAP 10/325 TAB ONE (14:23)
[2020-01-14] MEDS ORDERED: TETANUS & DIPHTHERIA TOX,ADULT 0.5 ML VIAL ONE (14:26)
--- NOTE | 2020-01-14 14:37 | RAD REPORT ---
EXAM DESCRIPTION: CT - Thorax Wo Con CLINICAL HISTORY: Chest pain fall, right sided rib pain COMPARISON: Thorax Wo Con dated 01/13/2020 FINDINGS: Mild linear atelectasis is present in the medial right lung base. No pleural thickening or pleural effusion. No pneumothorax. No axillary, mediastinal or hilar adenopathy. Diffuse osteopenia is seen. There is a subtle hairline fractures right posterior tenth and eleventh r ib. No gross upper abdominal finding. All CT scans are performed using dose optimization technique as appropriate and may include automated exposure control or mA/KV adjustment according to patient size. IMPRESSION: Hairline fracture suspected right posterior tenth and eleventh rib.No pneumothorax.
--- NOTE | 2020-01-14 15:12 | ER ---
Nurse's Notes [facility] Name: Josh Washington Age: 79 yrs Sex: Male : 1940 Arrival Date: 01/14/2020 Time: 11:10 Bed 27 Private MD: Diagnosis: Rib Fractures Presentation: 01/13 11:25 Chief complaint: Patient states: Fell on the shower and hurt back real bad. Happened a ca1 week ago. Pain is worst standing up. Coronavirus screen: Client denies travel out of the [place] in the last 14 days. At this time, the client does not indicate any symptoms associated with coronavirus-19. Ebola Screen: Patient negative for fever greater than or equal to 101.5 degrees Fahrenheit, and additional compatible Ebola Virus Disease symptoms Patient denies exposure to infectious person. Patient denies travel to an Ebola-affected area in the 21 days before illness onset. No symptoms or risks identified at this time. Initial Sepsis Screen: Does the patient meet any 2 criteria? No. Patient's initial sepsis screen is negative. Does the patient have a suspected source of infection? No. Patient's initial sepsis screen is negative. Risk Assessment: Do you want to hurt yourself or someone else? Patient reports no desire to harm self or others. Onset of symptoms was January 14, 2020. 11:25 Method Of Arrival: Ambulatory ca1 11:25 Acuity: BILL 4 ca1 Triage Assessment: 11:27 General: Appears in no apparent distress. comfortable, Behavior is calm, cooperative, ca1 appropriate for age. Historical: - Allergies: 11:27 No Known Allergies; ca1 - PMHx: 11:27 BPH; ca1 - Immunization history:: Adult Immunizations up to date. - Social history:: Smoking status: Patient denies any tobacco usage or history of. Screenin:30 Abuse screen: Denies threats or abuse. Denies injuries from another. Nutritional bp screening: No deficits noted. Tuberculosis screening: No symptoms or risk factors identified. Fall Risk None identified. Assessment: 13:30 General: Appears in no apparent distress. uncomfortable, Behavior is cooperative, bp appropriate for age, anxious. Pain: Complains of pain in back. Neuro: Level of Consciousness is awake, alert, obeys commands, Oriented to person, place, time, situation, Appropriate for age Gait is steady. Cardiovascular: No deficits noted. Respiratory: No deficits noted. GI: No signs and/or symptoms were reported involving the gastrointestinal system. : No signs and/or symptoms were reported regarding the genitourinary system. EENT: No deficits noted. Derm: No deficits noted. Musculoskeletal: Reports RIB PAIN. 14:30 Reassessment: PT RETURNED FROM CT, RESULTS PENDING. bp 15:21 Reassessment: PT GIVEN INCENTIVE SPIROMETER. PT D/C HOME VIA W/C, DX WITH RIB FRACTURES.bp Vital Signs: 11:25 BP 111 / 78; Pulse 85; Resp 16 S; Temp 97.5(O); Pulse Ox 95% on R/A; Weight 70.31 kg ca1 (R); Height 6 ft. 0 in. (182.88 cm) (R); 14:00 BP 127 / 73; Pulse 73; Resp 16; Pulse Ox 96% ; bp 14:30 BP 129 / 80; Pulse 63; Resp 16; Pulse Ox 97% ; bp 15:21 BP 112 / 99; Pulse 75; Resp 16; Pulse Ox 99% ; bp 11:25 Body Mass Index 21.02 (70.31 kg, 182.88 cm) ca1 ED Course: 11:10 Patient arrived in ED. ag5 11:27 Triage completed. ca1 11:27 Arm band placed on right wrist. ca1 13:21 Lopez Del Rio PA is PHCP. jmm 13:21 Misha Arcos MD is Attending Physician. jmm 13:30 Sandro Ibarra, WILBERT is Primary Nurse. bp 13:30 Patient has correct armband on for positive identification. Bed in low position. Call bp light in reach. Side rails up X2. 14:24 CT Chest Wo Con In Process Unspecified. EDMS 15:22 No provider procedures requiring assistance completed. Patient did not have IV access bp during this emergency room visit. Administered Medications: 14:13 Drug: [place] 10 mg-325 mg 1 tabs Route: PO; bp 15:23 Follow up: Response: Pain is decreased bp Outcome: 15:11 Discharge ordered by . jmm 15:22 Discharged to home via wheelchair. bp 15:22 Condition: stable 15:22 Discharge instructions given to patient, Instructed on discharge instructions, follow up and referral plans. medication usage, Demonstrated understanding of instructions, follow-up care, medications, Prescriptions given X 1. 15:43 Patient left the ED. bp Signatures: Dispatcher [employer] EDMS Lopez Del Rio PA PA jmm Peltier, Brian RN RN Lillie Patel RN RN [facility] Adrienne Gibbs ag5
--- NOTE | 2020-01-14 15:12 | EDPHYS ---
Physician Documentation [facility] Name: Josh Washington Age: 79 yrs Sex: Male : 1940 Arrival Date: 01/14/2020 Time: 11:10 Bed 27 Private MD: ED Physician Misha Arcos HPI: 01/13 14:05 This 79 yrs old Male presents to ER via Ambulatory with complaints of Back jmm Pain. 14:05 The patient presents with pain and an injury. Onset: The symptoms/episode jmm began/occurred acutely. Associated signs and symptoms: Pertinent negatives: fever. This is a 79 year old male with a history of BPH that presents to the ED with complaints of ongoing right sided rib pain and back pain. Evaluated in the ED previously for same injury. . 14:05 The pain does not radiate. jmm Historical: - Allergies: 11:27 No Known Allergies; ca1 - PMHx: 11:27 BPH; ca1 - Immunization history:: Adult Immunizations up to date. - Social history:: Smoking status: Patient denies any tobacco usage or history of. ROS: 14:05 Constitutional: Negative for fever, chills, and weight loss, Cardiovascular: Negative jmm for chest pain, palpitations, and edema, Respiratory: Negative for shortness of breath, cough, wheezing, and pleuritic chest pain. 14:05 Back: Positive for pain with movement. 14:05 All other systems are negative. Exam: 14:05 Constitutional: This is a well developed, well nourished patient who is awake, alert, jmm and in no acute distress. Head/Face: atraumatic. Eyes: EOMI, no conjunctival erythema appreciated ENT: Moist Mucus Membranes Neck: Trachea midline, Supple Chest/axilla: Normal chest wall appearance and motion. Cardiovascular: Regular rate and rhythm. No edema appreciated Respiratory: Normal respirations, no respiratory distress appreciated Abdomen/GI: Non distended, soft 14:05 Skin: General appearance color normal MS/ Extremity: Moves all extremities, no obvious deformities appreciated, no edema noted to the lower extremities Neuro: Awake and alert, normal gait Psych: Behavior is normal, Mood is normal, Patient is cooperative and pleasant 14:05 Back: right sided rib pain on palpation. Vital Signs: 11:25 BP 111 / 78; Pulse 85; Resp 16 S; Temp 97.5(O); Pulse Ox 95% on R/A; Weight 70.31 kg ca1 (R); Height 6 ft. 0 in. (182.88 cm) (R); 14:00 BP 127 / 73; Pulse 73; Resp 16; Pulse Ox 96% ; bp 14:30 BP 129 / 80; Pulse 63; Resp 16; Pulse Ox 97% ; bp 15:21 BP 112 / 99; Pulse 75; Resp 16; Pulse Ox 99% ; bp 11:25 Body Mass Index 21.02 (70.31 kg, 182.88 cm) ca1 MDM: 14:05 Patient medically screened. [facility] 15:10 Data reviewed: vital signs, nurses notes. Counseling: I had a detailed discussion with [facility] the patient and/or guardian regarding: the historical points, exam findings, and any diagnostic results supporting the discharge/admit diagnosis, radiology results, the need for outpatient follow up, to return to the emergency department if symptoms worsen or persist or if there are any questions or concerns that arise at home. ED course: Patient given incentive spirometry. patient given strict return precautions. patient understood and agrees with the plan of care. . 01/13 14:10 Order name: CT Chest Wo Con; Complete Time: 14:57 [facility] 01/13 14:57 Order name: INCENTIVE SPIROMETRY [facility] Administered Medications: 14:13 Drug: [place] 10 mg-325 mg 1 tabs Route: PO; bp 15:23 Follow up: Response: Pain is decreased bp Disposition: 17:31 Co-signature as Attending Physician, Misha Arcos MD. rn Disposition: 01/14/20 15:11 Discharged to Home. Impression: Rib Fractures. - Condition is Stable. - Discharge Instructions: Rib Fracture. - Prescriptions for Ultracet 37.5- 325 mg Oral Tablet - take 1 tablet by ORAL route every 6 hours - for up to 5 days; do not exceed 8 tablets per day.; 12 tablet. - Medication Reconciliation Form, Thank You Letter, Antibiotic Education, Prescription Opioid Use form. - Follow up: Private Physician; When: 2 - 3 days; Reason: Recheck today's complaints, Continuance of care, Re-evaluation by your physician. Signatures: Dispatcher [employer] EDMS Lopez Del Rio PA PA Misha Reaevs MD MD rn Peltier, Brian, RN RN bp AcLillie cardona RN RN ca1 Corrections: (The following items were deleted from the chart) 15:43 15:11 01/14/2020 15:11 Discharged to Home. Impression: Rib Fractures. Condition is bp Stable. Forms are Medication Reconciliation Form, Thank You Letter, Antibiotic Education, Prescription Opioid Use. Follow up: Private Physician; When: 2 - 3 days; Reason: Recheck today's complaints, Continuance of care, Re-evaluation by your physician. lenny 17:08 14:05 This is a 79 year old male with a history of . lenny galvez
[2020-01-14 16:17] VITALS: TEMP 97.5
[2020-01-14 16:20] VITALS: BP 112/99; O2SAT 99
== END 2020-01-14 15:43 | disposition home or self-care (01) ==
LOC: ER 11:08
DX: S22.41XA Multiple fractures of ribs, right side, initial encounter for closed fracture (principal); W18.2XXA Fall in (into) shower or empty bathtub, initial encounter; Y93.89 Activity, other specified; Y92.9 Unspecified place or not applicable; Z23 Encounter for immunization
CPT/HCPCS: 71250; 90714; 99283

== ENCOUNTER 2020-01-15 06:33 | Emergency (ER) | payer OTHER ==
--- NOTE | 2020-01-15 07:02 | ER ---
Nurse's Notes [facility] Name: Josh Washington Age: 79 yrs Sex: Male : 1940 Arrival Date: 01/15/2020 Time: 06:36 Bed 7 Private MD: Gregg Whitmore Diagnosis: Multiple fractures of ribs Presentation: 01/14 06:49 Chief complaint: Patient states: Pt reports he loss his balance in the bathroom, ea reports he fell onto the bathtub and hit his back. Coronavirus screen: At this time, the client does not indicate any symptoms associated with coronavirus-19. Ebola Screen: No symptoms or risks identified at this time. Initial Sepsis Screen: Does the patient meet any 2 criteria? No. Patient's initial sepsis screen is negative. Does the patient have a suspected source of infection? No. Patient's initial sepsis screen is negative. Risk Assessment: Do you want to hurt yourself or someone else? Patient reports no desire to harm self or others. Onset of symptoms was January 15, 2020. 06:49 Method Of Arrival: Ambulatory ea 06:49 Acuity: BILL 3 ea Triage Assessment: 06:52 General: Appears in no apparent distress. Behavior is appropriate for age. Pain: ea Complains of pain in low back area and mid back area. Neuro: Level of Consciousness is awake, alert, obeys commands, Oriented to person, place, time, situation. Respiratory: Airway is patent Respiratory effort is even, unlabored, Respiratory pattern is regular, symmetrical. Derm: Skin is pink, warm \T\ dry. Historical: - Allergies: 06:50 No Known Allergies; mg2 - PMHx: 06:50 BPH; mg2 - PSHx: 06:50 None; mg2 - Immunization history:: Flu vaccine status is unknown. - Social history:: Smoking status: Patient denies any tobacco usage or history of. Patient/guardian denies using street drugs, IV drugs. - Family history:: not pertinent. - Hospitalizations: : No recent hospitalization is reported. Screenin:49 Abuse screen: Denies threats or abuse. Denies injuries from another. Nutritional mg2 screening: No deficits noted. Tuberculosis screening: No symptoms or risk factors identified. Fall Risk Fall in past 12 months (25 points). Assessment: 06:56 General: see triage assessment. mg2 Vital Signs: 06:49 BP 140 / 70; Pulse 74; Resp 16; Temp 97.5; Pulse Ox 97% on R/A; Weight 74.84 kg; Height ea 6 ft. (182.88 cm); Pain 8/10; 07:17 BP 101 / 62; Pulse 63; Resp 20; Pulse Ox 98% on R/A; jr10 06:49 Body Mass Index 22.38 (74.84 kg, 182.88 cm) ea ED Course: 06:36 Patient arrived in ED. mr 06:37 Gregg Whitmore MD is Private Physician. mr 06:37 Misha Arcos MD is Attending Physician. rn 06:49 Patient has correct armband on for positive identification. Door closed. mg2 06:52 Triage completed. ea 06:52 Arm band placed on right wrist. Patient placed in an exam room, on a stretcher, on ea pulse oximetry. 06:53 Alden Santana, RN is Primary Nurse. mg2 06:57 No provider procedures requiring assistance completed. mg2 07:18 Patient did not have IV access during this emergency room visit. jr10 Administered Medications: 07:09 Drug: [place] 5 mg-325 mg 1 tabs Route: PO; jr10 07:09 Drug: Motrin 800 mg Route: PO; jr10 Outcome: 07:01 Discharge ordered by . rn 07:18 Discharged to home ambulatory. jr10 07:18 Condition: good 07:18 Discharge instructions given to patient, Instructed on discharge instructions, follow up and referral plans. Demonstrated understanding of instructions, follow-up care. 07:18 Patient left the ED. jr10 Signatures: Cecy Acosta mr Misha Arcos MD MD rn Antunez, Elena RN Alden Mena ea, WILBERT ATKINS [facility] Tyra Acosta RN RN jr10
--- NOTE | 2020-01-15 07:02 | EDPHYS ---
Physician Documentation [facility] Name: Josh Washington Age: 79 yrs Sex: Male : 1940 Arrival Date: 01/15/2020 Time: 06:36 Bed 7 Private MD: Gregg Whitmore ED Physician Misha Arcos HPI: 01/14 06:58 This 79 yrs old Male presents to ER via Ambulatory with complaints of rib rn pain. 06:58 The patient or guardian reports chest pain that is located primarily in the anterior rn chest wall, right lateral anterior chest and right lateral posterior chest. Onset: The symptoms/episode began/occurred 1 week(s) ago. The pain does not radiate. The chest pain is described as aching, sharp. Duration: The patient or guardian reports multiple episodes, that are intermittent. Modifying factors: The symptoms are alleviated by nothing. the symptoms are aggravated by cough, deep breath. Severity of pain: At its worst the pain was moderate in the emergency department the pain is unchanged. The patient has not experienced similar symptoms in the past. The patient has been recently seen at the [facility] Emergency Department. Seen here yesterday, had CT chest, showed 2 possible rib fractures, no new injury, just unable to fill medication prescribed and states still having pain. States friend is to loan him money to fill prescription. No sob. . Historical: - Allergies: 06:50 No Known Allergies; mg2 - PMHx: 06:50 BPH; mg2 - PSHx: 06:50 None; mg2 - Immunization history:: Flu vaccine status is unknown. - Social history:: Smoking status: Patient denies any tobacco usage or history of. Patient/guardian denies using street drugs, IV drugs. - Family history:: not pertinent. - Hospitalizations: : No recent hospitalization is reported. ROS: 06:58 Constitutional: Negative for fever, chills, and weight loss, Cardiovascular: + rib pain rn Respiratory: Negative for shortness of breath, cough, wheezing Abdomen/GI: Negative for abdominal pain, nausea, vomiting, diarrhea, and constipation. Exam: 06:58 Constitutional: This is a well developed, well nourished patient who is awake, alert, rn and in no acute distress. Ambulatory to room without difficulty or assistance Chest/axilla: Normal chest wall appearance and motion. No crepitus. + right lateral chest wall tenderness, no depression. Cardiovascular: Regular rate and rhythm. No pulse deficits. Respiratory: Speaking full sentences. No increased work of breathing, no retractions or nasal flaring. Vital Signs: 06:49 BP 140 / 70; Pulse 74; Resp 16; Temp 97.5; Pulse Ox 97% on R/A; Weight 74.84 kg; Height ea 6 ft. (182.88 cm); Pain 8/10; 07:17 BP 101 / 62; Pulse 63; Resp 20; Pulse Ox 98% on R/A; jr10 06:49 Body Mass Index 22.38 (74.84 kg, 182.88 cm) ea MDM: 06:37 Patient medically screened. rn 06:58 Differential diagnosis: Blunt Chest Trauma Chest Wall Contusion Rib Fracture. Data rn reviewed: vital signs, nurses notes, old medical records, and as a result, I will discharge patient. Counseling: I had a detailed discussion with the patient and/or guardian regarding: the historical points, exam findings, and any diagnostic results supporting the discharge/admit diagnosis, radiology results, the need for outpatient follow up, to return to the emergency department if symptoms worsen or persist or if there are any questions or concerns that arise at home. Special discussion: I discussed with the patient/guardian in detail that at this point there is no indication for admission to the hospital. It is understood, however, that if the symptoms persist or worsen the patient needs to return immediately for re-evaluation. ED course: No new trauma or symptoms, pain meds given, patient thankful, will dc home. . Administered Medications: 07:09 Drug: [place] 5 mg-325 mg 1 tabs Route: PO; jr10 07:09 Drug: Motrin 800 mg Route: PO; jr10 Disposition: 01/15/20 07:01 Discharged to Home. Impression: Multiple fractures of ribs. - Condition is Stable. - Discharge Instructions: Rib Fracture, Incentive Spirometer. - Medication Reconciliation Form, Thank You Letter, Antibiotic Education, Prescription Opioid Use form. - Follow up: Private Physician; When: As needed; Reason: Recheck today's complaints, Re-evaluation by your physician. - Problem is new. - Symptoms have improved. Signatures: Misha Arcos MD MD rn Gardose, Michele, RN RN mg2 Rivera, Jessica, RN RN jr10 Corrections: (The following items were deleted from the chart) 07:18 07:01 01/15/2020 07:01 Discharged to Home. Impression: Multiple fractures of ribs. jr10 Condition is Stable. Forms are Medication Reconciliation Form, Thank You Letter, Antibiotic Education, Prescription Opioid Use. Follow up: Private Physician; When: As needed; Reason: Recheck today's complaints, Re-evaluation by your physician. Problem is new. Symptoms have improved. rn
[2020-01-15] MEDS ORDERED: IBUPROFEN 400 MG TAB ONE (07:17)
[2020-01-15] MEDS ORDERED: HYDROCODONE/APAP 5/325 MG TAB ONE (07:17)
[2020-01-15 07:23] VITALS: TEMP 97.5
[2020-01-15 07:25] VITALS: BP 101/62; O2SAT 98
== END 2020-01-15 07:18 | disposition home or self-care (01) ==
LOC: ER 06:33
DX: S22.49XA Multiple fractures of ribs, unspecified side, initial encounter for closed fracture (principal); W18.2XXA Fall in (into) shower or empty bathtub, initial encounter; Y93.9 Activity, unspecified; Y92.9 Unspecified place or not applicable